=== PATIENT | female | born 1955 | race Caucasian/White ===

== ENCOUNTER 2016-09-29 19:11 | Emergency (ER) | payer OTHER ==
[~2016-09-29] VITALS: Ht 162.6 cm; Wt 60.0 kg
[~2016-09-29 19:11] MED LIST: ASPIRIN325 MG PO; IBUPROFEN600 MG PO; ZOLOFT100 MG PO
[2016-09-29 20:17] LABS: ADD MIUA? YES; BILIRUBIN NEGATIVE; BLOOD NEGATIVE; COLOR COLORLESS ((YELLOW)); GLUCOSE (STRIP) NEGATIVE; KETONES NEGATIVE; LEUKOCYTES SMALL; NITRITE NEGATIVE; PROTEIN (STRIP) NEGATIVE; SPECIFIC GRAVITY 1.004 (1.000-1.030); UROBILINOGEN 0.2 MG/DL (0.2-1.0)
[2016-09-29 20:22] LABS: BACTERIA NONE SEEN /HPF; EPITHELIAL CELLS NONE SEEN /HPF; MUCUS NONE SEEN /LPF; RED BLOOD CELLS 0-5 /HPF (0-5); WHITE BLOOD CELLS 0-5 /HPF (0-5)
[2016-09-29 20:30] LABS: EOSINOPHIL (%) 2.9 % (0-5); EOSINOPHIL COUNT 0.3 K/uL (0-0.3); HEMATOCRIT 38.2 % (36.0-46.0); IMMATURE GRANULOCYTE (%) 0.8 % (0.0-0.7); IMMATURE GRANULOCYTE COUNT 0.1 K/uL; INSTRUMENT ABS NEUTROPHIL CT 6.4 K/uL; MCH 28.4 PG (29.0-34.0); MEAN PLAT.VOLUME 9.4 uM^3 (9.5-12.4); MONOCYTE (%) 9.3 % (3-12); MONOCYTE COUNT 0.9 K/uL (0-0.8); NEUTROPHIL (%) 66.4 % (45-76); NEUTROPHIL COUNT 6.4 K/uL (1.8-6.4); PLATELET COUNT 222 K/uL (156-360); RBC DIS.WIDTH-CV 12.4 % (11.8-14.6); RBC DIS.WIDTH-SD 39.4 % (39-53); RED BLOOD COUNT 4.44 M/uL (3.80-5.20); WHITE BLOOD COUNT 9.7 K/uL (4.1-10.2)
[2016-09-29 20:39] LABS: CHLORIDE 108 mEq/L (99-109); POTASSIUM 3.9 mEq/L (3.7-5.4); SODIUM 138 mEq/L (136-147)
[2016-09-29 20:41] LABS: GLUCOSE 82 mg/dL (70-99)
[2016-09-29 20:42] LABS: ANION GAP 10 MEQ/L (2-14)
[2016-09-29 20:43] LABS: TOTAL BILIRUBIN 0.8 mg/dL (0.0-1.0)
[2016-09-29 20:44] LABS: ALKALINE PHOSPHATASE 78 IU/L (3-129)
[2016-09-29 20:45] LABS: GFR ESTIMATE (CALCULATED) > 59 mL/min/
[2016-09-29 20:46] LABS: UREA NITROGEN (BUN) 16 mg/dL (9-23)
[2016-09-29 20:48] LABS: LIPASE 49 U/L (1.0-51.0)
[2016-09-29] MEDS ORDERED: MIRALAX255 GM PO (21:36)
[2016-09-29] MEDS ORDERED: NAPROSYN500 MG PO (21:37)
[2016-09-29 22:02] VITALS: BP 128/72
== END 2016-09-29 22:04 | disposition home or self-care (01) ==
LOC: EME 19:11 → EXP 19:11
PROVIDERS: Physician Assistant
DX: K59.00 Constipation, unspecified (principal); R10.12 Left upper quadrant pain
CPT/HCPCS: 74176; 80053; 81003; 83690; 85025; 93005; 99281; 99284; J1885; J2405